=== PATIENT | male | born 1955 | race Caucasian/White ===

== ENCOUNTER 2021-09-26 11:23 | Outpatient (CLI) | payer OTHER | END 2021-09-26 11:24 | disposition home or self-care (01) | LOC: LABBT 11:23 | PROVIDERS: ATTEND Orthopaedic Surgery | DX: Z01.812 Encounter for preprocedural laboratory examination (principal); M17.12 Unilateral primary osteoarthritis, left knee; Z20.822 Contact with and (suspected) exposure to COVID-19 | CPT/HCPCS: 87081; 87811 ==